=== PATIENT | female | born 1955 | race Caucasian/White ===

== ENCOUNTER → 2024-01-23 06:21 | Day surgery (SDC) | payer MEDICARE, OTHER, SELFPAY | LOC: GI 06:21 | PROVIDERS: ATTENDING PHYSICIAN Specialist | DX: Z12.11 Encounter for screening for malignant neoplasm of colon (principal); D12.0 Benign neoplasm of cecum; K57.30 Diverticulosis of large intestine without perforation or abscess without bleeding; K56.2 Volvulus; Z86.010 Personal history of colon polyps | CPT/HCPCS: 45380; 88305 ==

== ENCOUNTER → 2024-03-12 11:40 | Outpatient (REF) | payer MEDICARE, OTHER, SELFPAY | LOC: RAD 11:40 | PROVIDERS: ATTENDING PHYSICIAN Obstetrics & Gynecology Gynecology; FAMILY PHYSICIAN Family Medicine | DX: Z78.0 Asymptomatic menopausal state (principal) | CPT/HCPCS: 77080 ==

== ENCOUNTER → 2024-03-26 11:46 | Outpatient (REF) | payer MEDICARE, OTHER, SELFPAY | LOC: RAD 11:46 | PROVIDERS: ATTENDING PHYSICIAN Nurse Practitioner Family | DX: M54.16 Radiculopathy, lumbar region (principal) | CPT/HCPCS: 72110; 72200; 72220 ==

== ENCOUNTER 2024-07-09 18:47 | Emergency (ER) | payer OTHER, SELFPAY ==
[2024-07-09 18:50] VITALS: BP 150/91
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
[2024-07-09 20:45] VITALS: BP 121/75
== END 2024-07-09 21:59 | disposition home or self-care (01) ==
LOC: EMR 18:47
PROVIDERS: EMERGENCY PHYSICIAN Student in an Organized Health Care Education/Training Program; FAMILY PHYSICIAN Family Medicine
DX: M54.2 Cervicalgia (principal); H53.8 Other visual disturbances; M79.10 Myalgia, unspecified site; V47.0XXA Car driver injured in collision with fixed or stationary object in nontraffic accident, initial encounter; Y92.410 Unspecified street and highway as the place of occurrence of the external cause; K58.9 Irritable bowel syndrome, unspecified
CPT/HCPCS: 99284; 70450; 72125

== ENCOUNTER → 2024-07-11 14:35 | Outpatient (REF) | payer OTHER, SELFPAY | LOC: RAD 14:35 | PROVIDERS: ATTENDING PHYSICIAN Nurse Practitioner Family; FAMILY PHYSICIAN Family Medicine | DX: M54.31 Sciatica, right side (principal); M54.32 Sciatica, left side; V49.50XA Passenger injured in collision with unspecified motor vehicles in traffic accident, initial encounter | CPT/HCPCS: 72110 ==

== ENCOUNTER → 2024-11-06 11:05 | Outpatient (REF) | payer MEDICARE, OTHER, SELFPAY ==
[2024-11-06 13:36] LABS: Blood Urea Nitrogen 16 mg/dl (7-17); Calcium 9.3 mg/dl (8.4-10.2); Carbon Dioxide 33 mmol/L (22-30); Chloride 102 mmol/L (98-107); Glucose 100 mg/dl (70-99); Potassium 4.4 mmol/L (3.5-5.1); Sodium 142 mmol/L (135-145); eGFR > 60.00
== END ==
LOC: REG 11:05
PROVIDERS: ATTENDING PHYSICIAN Specialist
DX: R10.84 Generalized abdominal pain (principal)
CPT/HCPCS: 36415; 80048

== ENCOUNTER → 2024-11-12 10:47 | Outpatient (REF) | payer MEDICARE, OTHER, SELFPAY | LOC: RAD 10:47 | PROVIDERS: ATTENDING PHYSICIAN Specialist; FAMILY PHYSICIAN Family Medicine | DX: R10.84 Generalized abdominal pain (principal) | CPT/HCPCS: 74177; Q9967 ==

== ENCOUNTER → 2025-01-22 13:25 | Outpatient (REF) | payer MEDICARE, OTHER, SELFPAY | LOC: HWRAD 13:25 | PROVIDERS: ATTENDING PHYSICIAN Obstetrics & Gynecology Gynecology; FAMILY PHYSICIAN Family Medicine | DX: N83.209 Unspecified ovarian cyst, unspecified side (principal) | CPT/HCPCS: 76830; 76856 ==

== ENCOUNTER → 2025-01-30 13:35 | Outpatient (REF) | payer MEDICARE, OTHER, SELFPAY | LOC: WDC 13:35 | PROVIDERS: ATTENDING PHYSICIAN Obstetrics & Gynecology Gynecology; FAMILY PHYSICIAN Family Medicine | DX: Z12.31 Encounter for screening mammogram for malignant neoplasm of breast (principal) | CPT/HCPCS: 77063; 77067 ==

== ENCOUNTER 2025-08-24 16:37 | Emergency (ER) | payer MEDICARE, OTHER, SELFPAY ==
[2025-08-24 16:38] VITALS: BP 142/88
--- NOTE | 2025-08-24 17:21 | ED.GENMED ---
History of Present Illness
General
Chief Complaint: Back Pain
Source: patient and family
Time Seen by Provider: 08/24/25 17:03
History of Present Illness
History of Present Illness:
This patient is a 70-year-old female who presents emergency department with complaints of pain in the right buttock radiating down the posterior part of her leg sometimes radiating to the heel and arch area. She says it feels like a 'electric
shock'. She first noticed it Sunday morning, and since then the pain has waxed and waned in intensity. She has been able to drive and run errands. She applied a heating pad and ice with partial relief of symptoms. She had been gardening
recently, but otherwise denies any specific trauma or fall, heavy lifting, fever, chills, recent injection, chest pain, dyspnea, abdominal pain, perianal anesthesia. Patient typically has stress incontinence for example with coughing or laughing,
but in the last few days she said that she had a few episodes where she passed just a very small amount of urine, 'not enough to even wear a pad', without intending to. She was aware that she was passing the urine and denies coughing or laughing or
other stress at that time. She denies motor weakness.
Past History
Past History
ED Past Medical History: HTN, Hypercholesterolemia, Psychiatric and Other (IBS)
ED Past Surgical History: Orthopedic and Other (eye)
Social History
Tobacco: Non-smoker
Alcohol: Occasional
Drug: None
Personal:
Living: other (In-law suite on daughter's property)
Phy Exam
Physical Exam
Physical Exam:
GENERAL: Alert , in no apparent distress
EYE: pupils equal and reactive
NECK: Supple, no significant adenopathy.
ENT: o/p clr, mmm.
CARDIAC: Regular rate and rhythm .
LUNGS: Clear breath sounds bilaterally, no acute respiratory distress, no wheezes/rales/rhonchi
ABDOMEN: Soft, without focal tenderness, no r/g, no cvat
NEUROLOGICAL: Alert and oriented, no focal neuro deficits, motor 5 out of 5, sensory intact, 2+ patellar reflexes, no clonus, cranial nerves II through XII intact
SKIN: Warm and dry, skin intact.
MUSCULOSKELETAL: No edema, well perfused. Full range of motion of lower extremities bilaterally without hesitation or pain, negative Homans, no rash or other skin findings of lower extremities, normal pulses distally
PSYCH: Normal and appropriate interaction.
BACK: no midline ttp, no rash/skin changes
Course
Orders/Labs/Results
Orders:
Orders
08/24/25 17:40
Gabapentin [Neurontin] 300 mg PO NOW STA
Ketorolac [Toradol] 15 mg IM NOW STA
LS Spine Complete, 4 View [CR Lumbar Spine Comp Min 4 Vw*] Urgent
Comment:
Reason For Exam: pain
08/24/25 18:56
Diazepam [Valium] 2 mg PO NOW STA
Vital Signs
Initial and Last Documented VS:
Initial Vital Signs
Temp Pulse Resp BP Pulse Ox
98.1 F 76 18 142/88 96
08/24/25 16:38 08/24/25 16:38 08/24/25 16:38 08/24/25 16:38 08/24/25 16:38
Last Documented Vital Signs
Temp Pulse Resp BP Pulse Ox
98.1 F 76 18 142/88 96
08/24/25 16:38 08/24/25 16:38 08/24/25 16:38 08/24/25 16:38 08/24/25 17:23
*Pulse Oximetry
SaO2: 96
Oxygen Mode of Delivery: Room air
Update Note
Update Note:
Patient presents to the Emergency Department with ____buttock pain
Number and Complexity of Problems Addressed at the Encounter
� Chronic conditions affecting care:
� Acute Exacerbation and/or Progression of Chronic Illness:
� Differential Diagnosis includes: But not limited to radiculopathy, sciatica, spinal fracture such as compression fracture, cauda equina, kidney stone, etc. etc.
Amount and/or Complexity of Data to be Reviewed and Analyzed
� I performed an independent evaluation of and my interpretation is:
EKG:
CT:
Xrays:LS SPINE read by me, age related changes, no fx, no lesions noted
Laboratory Studies:
Other:
� Review of other/old records reveals:
� Clinical information was obtained by an independent historian: Daughter who is bedside
� Prescriptions/Medications Considered but not given:
� Further testing considered but not performed:
Risk of Complications and/or Morbidity or Mortality of Patient Management
� Social determinants of health affecting care:
� Discussion with other providers (PCP, Hospitalists, Consultants, etc):
� Escalation of care including admission/observation vs risk of discharge considered: Based on history and physical, strongly suspect radiculopathy. Patient has a normal neurological exam, motor intact, reflexes normal, sensory
intact. Pulses are normal extremity warm and well-perfused. Will obtain x-ray and help manage pain. Patient is not describing difficulty urinating, persistent incontinence, perianal anesthesia, or other abnormalities. To suggest cauda equina.
Pt walked to br without difficulty, urinating as usual, no incont or perianal anesthesis. D/w pt import of f/u, she has a spine appt on Sun, as well as redaosns to rted.
ED Attending Note
-
Portions of this chart may have been created with voice recognition software.� Occasional wrong word or��sound alike� substitutions may have occurred due to the inherent limitations of voice recognition software.
Discharge Plan
Departure
Patient Disposition: Home (Routine Discharge)
Date of Disposition: 08/24/25
Time of Disposition: 19:37
Patient with high blood pressure during this ER visit?: Yes
Condition: Good
Discharge Problem:
Radiculopathy
Instructions: Radiculopathy (DC), BLOOD PRESSURE
Prescriptions:
New
gabapentin [Neurontin] 300 mg capsule
300 mg PO BID Qty: 20 0RF
cyclobenzaprine 10 mg tablet
10 mg PO BID PRN (Reason: spasm) Qty: 20 0RF
Referrals:
Ezequiel Hawkins MD [Family Provider, Family Practice]
Interventions
Interventions:
*Risk Screen - Suicide Last Done: 08/24/25 16:41
*General Assessment Last Done: 08/24/25 19:17
*Neglect/Abuse Screening Last Done: 08/24/25 16:41
*ED- Fall Risk Assessment Last Done: 08/24/25 19:17
*ED COVID-19 Vaccine History Last Done: 08/24/25 19:17
*ED Influenza Vaccine History Last Done: 08/24/25 19:17
ED-Musculoskeletal Assessment Last Done: 08/24/25 17:47
Discharge Date and Time
Print Language: BULGARIAN
[2025-08-24] MEDS: TORADOL 15 MG IM (17:43)
[2025-08-24] MEDS: NEURONTIN 300 MG PO (17:43)
[2025-08-24 19:17] VITALS: BMI 26.6
[2025-08-24] MEDS: VALIUM 2 MG PO (19:23)
[2025-08-24 20:02] VITALS: BP 154/88
== END 2025-08-24 20:03 | disposition home or self-care (01) ==
LOC: EMR 16:37
PROVIDERS: EMERGENCY PHYSICIAN Emergency Medicine; FAMILY PHYSICIAN Family Medicine
DX: M54.10 Radiculopathy, site unspecified (principal); I10 Essential (primary) hypertension; E78.00 Pure hypercholesterolemia, unspecified; K58.9 Irritable bowel syndrome, unspecified
CPT/HCPCS: 99283; 96372; 72110

== ENCOUNTER → 2025-09-21 14:03 | Outpatient (REF) | payer MEDICARE, OTHER, SELFPAY | LOC: HWRAD 14:03 | PROVIDERS: ATTENDING PHYSICIAN Family Medicine; REFERRING PHYSICIAN Internal Medicine Interventional Cardiology | DX: Z13.6 Encounter for screening for cardiovascular disorders (principal); Z82.49 Family history of ischemic heart disease and other diseases of the circulatory system | CPT/HCPCS: 75571 ==